=== PATIENT | male | born 1970 | race Two or more races ===

== ENCOUNTER 2021-11-23 21:59 | Emergency (ER) | payer MEDICAID ==
[~2021-11-23] VITALS: Ht 172.7 cm; Wt 77.1 kg
[2021-11-23 22:00] VITALS: BP 136/79
== END 2021-11-23 23:40 | disposition left against medical advice (07) ==
LOC: ER 21:59 → EDBD 21:59 → ER 23:40
DX: F32.9 Major depressive disorder, single episode, unspecified (principal); Z53.21 Procedure and treatment not carried out due to patient leaving prior to being seen by health care provider

== ENCOUNTER 2022-01-17 22:26 | Emergency (ER) | payer MEDICAID ==
[~2022-01-17] VITALS: Ht 182.9 cm; Wt 86.2 kg
[2022-01-17 22:31] VITALS: BP 111/62
== END 2022-01-17 23:37 | disposition home or self-care (01) ==
LOC: EDBD 22:26 → ER 22:26
DX: F20.9 Schizophrenia, unspecified (principal)
CPT/HCPCS: 76870